=== PATIENT | male | born 1990 | race Two or more races ===

== ENCOUNTER 2018-01-01 20:10 | Emergency (ER) | payer SELFPAY ==
[~2018-01-01] VITALS: Ht 170.2 cm; Wt 63.5 kg
--- NOTE | 2018-01-01 20:22 | NUR ---
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 PT STATES HE WALKED HIS DOG, ATE CANDYAND THEN BEGAN TO HAVE SOB AND PALPITATIONS AND WORKED CONSTRUCTION ALL DAY. PT IS AAOX4. PT NOTED TO BE HOT TO TOUCH AND VERY RED IN SKIN TONE. PT ALSO NOTED TO HAVE DRY ORAL MUCOSA AND SINUS TACHYCARDIC 130BPM. PT ALSO STATES HE IS SHORT OF BREATH, 90% ON RA. LUNG SOUNDS DIMINSIHED ON AUSCULTATION. PT PLACED ON NC 3L/M, 96% SPO2. PT PLACED ON KILNMAN AND POX. PT SAFETY AND COMFORT MEASURES IN PLACE. MILD S/S OF DISTRESS NOTED. MD BEDSIDE FOR EVAL. PT'S FAMILY BEDSIDE. WILL CONTINUE TO MONITOR
[2018-01-01 20:28] LABS: BASOPHILS # (AUTO) 0.1 /CMM (0.0-0.2); BASOPHILS % (AUTO) 0.7 % (0.0-2.0); EOSINOPHILS % (AUTO) 0.4 % (0.0-6.0); HEMATOCRIT 46 % (39-51); HEMOGLOBIN 15.7 g/dL (13.5-17.5); LYMPHOCYTES % (AUTO) 49.1 % (20.0-44.0); MEAN CORPUSCULAR HGB CONC 34 g/dl (31.0-36.0); MEAN CORPUSCULAR VOLUME 88 fL (80-96); MONOCYTES # (AUTO) 0.5 /CMM (0.1-1.30); MONOCYTES % (AUTO) 4.8 % (2.0-12.0); NEUTROPHILS # (AUTO) 4.5 /CMM (1.8-8.9); PLATELET COUNT (AUTO) 511 /CMM (150-450); RDW COEFFICIENT OF VARIATION 13.5 (11.5-15.0); RED BLOOD CELL COUNT(AUTO) 5.21 MIL/uL (4.5-6.0); WHITE BLOOD COUNT (AUTO) 10.1 K/uL (4.3-11.0)
[2018-01-01] MEDS ORDERED: IV NS 0.9% 1,000 ML BAG IV ONE (20:30)
[2018-01-01] MEDS ORDERED: IV NS 0.9% 1,000 ML IV ONE (20:30)
[2018-01-01 20:47] LABS: INR 0.98 (0.87-1.13)
[2018-01-01 20:48] LABS: ALBUMIN 4.5 g/dL (3.4-5.0); BILIRUBIN,DIRECT 0.1 mg/dL (0.0-0.2); BILIRUBIN,TOTAL 0.5 mg/dL (0.2-1.0); CALCIUM, SERUM 9.6 mg/dL (8.5-10.1); CREATININE 1.5 mg/dL (0.6-1.3); POTASSIUM 3.5 mmol/L (3.5-5.1); TOTAL PROTEIN, SERUM 7.7 g/dL (6.4-8.2)
[2018-01-01 21:32] LABS: CREATINE KINASE MB 1.1 ng/mL (0-3.6)
--- NOTE | 2018-01-01 21:55 | NUR ---
Patient discharged to home in stable condition. Written and verbal after care instructions given. Patient verbalizes understanding of instruction.IV removed. Catheter intact and site benign. Pressure and 4x4 applied to site. No bleeding noted. VSS UPON DISCHARGE. PT AMBULATED WITH STEADY GAIT NOTED
[2018-01-01 21:59] VITALS: BP 122/63
== END 2018-01-01 22:00 | disposition home or self-care (01) ==
LOC: ER 20:12
DX: T67.5XXA Heat exhaustion, unspecified, initial encounter (principal); E86.0 Dehydration; X58.XXXA Exposure to other specified factors, initial encounter; Y93.89 Activity, other specified; Y92.89 Other specified places as the place of occurrence of the external cause; Y99.8 Other external cause status
CPT/HCPCS: 36415; 71045; 80048; 80076; 82550; 82553; 85025; 85730; 93005; 96360; 99285; A4606; J7030; Z7610